=== PATIENT | female | born 1980 | race Hispanic/Latino ===

== ENCOUNTER → 2018-04-04 | Day surgery (SDC) | payer OTHER ==
[~2018-04-04] VITALS: Ht 149.9 cm; Wt 61.7 kg
[~2018-04-04] MED LIST: BACTRIM DS TAB1 EACH PO; IBUPROFEN800 M1 PO; LEVOTHYROXINE0.05 M1 PO; LEVOTHYROXINE50 MCG PO; MOBIC15 MG PO; MOTRIN 800MG T800 MG PO; PERCOCET 325 MG1 TA2 PO; SERTRALINE HCL50 MG PO; SERTRALINE HYDR50 MG PO
--- NOTE | 2018-04-04 12:39 | Operative Report ---
Operative/Inv Procedure Report Surgery Date: 04/04/18 Name of Procedure: Diagnostic laparoscopy lysis of adhesions Pre-Operative Diagnosis: Pelvic pain Post-Operative Diagnosis: Same Estimated Blood Loss: scant Surgeon/Installation Supervisor: Linda Orellana MD Anesthesia: general endotracheal tube, block Operative/Procedure Note Note: Procedure note patient was taken to the operating room placed prone position after adequate induction general anesthesia via endotracheal tube patient placed in dorsolithotomy position the vagina from dorsal fashion bladder was catheterized CO2 tenaculum placed on the Intralipid cervix gentle downward traction patient tolerated this well at this point the on Gan cannula was left in place Samuel was left in place and the surgeon regowned and gloved at the level of the umbilicus a stab incision was made to allow for the entry of Veress needle the abdomen was insufflated possibly 4 L of CO2 to liver edge dullness which point the Veress needle was a 10 mm trocar was inserted at the umbilicus sheath remained placed through that sheath laparoscope placed under direct visualization a 5 mm port was placed 2 fingerbreadths of symptoms pubis in midline patient tolerated that well I at this point on the Kleppinger was used for lysis of adhesions of the piece of omentum which was hemostatic pictures were taken on on maximal CO2 was removed from the abdomen on since removed from the abdomen the incision the umbilicus was oversewn for the fascia for 0 on infant running locking suture on a 3-year-old was used for the skin incision with interrupted Marcaine was injected underneath the skin at the end the case the counts correct the Gan cannula was removed the Samuel was removed the patient was returned spine position she was awakened from anesthesia and transferred recovery room awake alert counts correct Findings: Uterus appears normal both ovaries appear normal there is an absent left tube and the right tube has only 5 cm towards the fimbria on there was an adhesion from the peritoneum scar to the fundus of the uterus otherwise normal anatomy
== END ==
LOC: STS 01:08
DX: R10.2 Pelvic and perineal pain (principal); K66.0 Peritoneal adhesions (postprocedural) (postinfection)
CPT/HCPCS: 81025; C9399; J0131; J2250; J3490